=== PATIENT | female | born 1980 | race American Indian/Alaskan Native ===

== ENCOUNTER 2022-06-19 00:17 | Emergency (ER) | payer SELFPAY ==
[2022-06-19] MEDS ORDERED: levETIRAcetam 1000 MG/NS 0.75% 1,000 MG/100 ML BAG IV ONE (01:45)
--- NOTE | 2022-06-19 04:31 | Emergency Department Report ---
ED Seizure HPI - General Chief Complaint: Seizure Stated Complaint: SEIZURES Time Seen by Provider: 06/19/22 01:45 Source: patient, EMS Mode of arrival: Stretcher Limitations: No Limitations - History of Present Illness Initial Comments: Patient is a 42-year-old female with history of seizures brought in by EMS from home after having multiple witnessed seizures. Takes Keppra, Vimpat and clonazepam. She is compliant with her medications. Given 2 mg of IV Ativan by EMS in route. - Related Data Allergies Allergy/AdvReac Type Severity Reaction Status Date / Time lisinopril Allergy Dizziness Verified 06/19/22 01:36 ED Review of Systems ROS: Stated complaint: SEIZURES Other details as noted in HPI Constitutional: denies: chills, fever Respiratory: no symptoms reported Cardiovascular: denies: chest pain, palpitations Gastrointestinal: denies: abdominal pain, nausea, diarrhea Genitourinary: denies: urgency, dysuria, discharge Musculoskeletal: denies: back pain, joint swelling, arthralgia Skin: denies: rash, lesions Neurological: denies: headache, weakness, paresthesias Psychiatric: denies: anxiety, depression ED Past Medical Hx - Past Medical History Previous Medical History?: Yes Hx Hypertension: Yes Hx CVA: Yes Hx Seizures: Yes Additional medical history: Brain Anuerysm - Surgical History Past Surgical History?: No - Social History Smoking Status: Never Smoker Substance Use Type: None ED Physical Exam - General Limitations: No Limitations General appearance: alert, in no apparent distress - Head Head exam: Present: atraumatic, normocephalic - Respiratory Respiratory exam: Present: normal lung sounds bilaterally. Absent: respiratory distress - Cardiovascular Cardiovascular Exam: Present: regular rate, normal rhythm, normal heart sounds. Absent: systolic murmur, diastolic murmur, rubs, gallop - GI/Abdominal GI/Abdominal exam: Present: soft. Absent: distended, tenderness - Rectal Rectal exam: Present: deferred - Neurological Exam Neurological exam: Present: alert, oriented X3, CN II-XII intact - Psychiatric Psychiatric exam: Present: normal affect, normal mood - Skin Skin exam: Present: warm, dry, intact, normal color ED Course Vital Signs 06/19/22 06/19/22 06/19/22 00:17 02:02 02:16 Temperature 98 F Pulse Rate 82 77 71 Respiratory 18 19 17 Rate Blood Pressure 134/76 126/62 O2 Sat by Pulse 99 97 97 Oximetry 06/19/22 06/19/22 06/19/22 02:30 02:46 03:00 Temperature Pulse Rate 73 78 79 Respiratory 19 20 24 Rate Blood Pressure 126/62 126/62 126/62 O2 Sat by Pulse 98 97 97 Oximetry 06/19/22 03:16 Temperature Pulse Rate 76 Respiratory 17 Rate Blood Pressure 126/62 O2 Sat by Pulse 98 Oximetry ED Medical Decision Making - Medical Decision Making Physical exam benign. Patient loaded with 1 g of IV Keppra. On reassessment patient remains stable. No seizure episodes while in the emergency department after roughly 4 hours. Patient stable for discharge home with return precautions. Critical care attestation.: If time is entered above; I have spent that time in minutes in the direct care of this critically ill patient, excluding procedure time. ED Disposition Clinical Impression: Seizure Disposition: 01 HOME / SELF CARE / HOMELESS Is pt being admited?: No Condition: Stable Instructions: Epilepsy, [id number] Additional Instructions: Please follow-up with your regular doctor as needed. You may return if your symptoms worsen.
[2022-06-19 06:26] VITALS: BP 168/86
== END 2022-06-19 04:48 | disposition home or self-care (01) ==
LOC: ED 00:17
DX: R56.9 Unspecified convulsions (principal); I10 Essential (primary) hypertension; Z98.890 Other specified postprocedural states; Z88.8 Allergy status to other drugs, medicaments and biological substances; Z79.899 Other long term (current) drug therapy
CPT/HCPCS: 96374; 99283; J1953